=== PATIENT | male | born 1975 | race Caucasian/White ===

== ENCOUNTER 2025-01-09 06:35 | Day surgery (SDC) | payer BC, SELFPAY | END 2025-01-09 14:09 | disposition home or self-care (01) | LOC: GI 06:35 | PROVIDERS: ATTENDING PHYSICIAN Internal Medicine Gastroenterology | DX: K22.89 Other specified disease of esophagus (principal); K31.7 Polyp of stomach and duodenum; K31.89 Other diseases of stomach and duodenum; R19.5 Other fecal abnormalities | CPT/HCPCS: 43239; 88305; 88342 ==